=== PATIENT | female | born 1975 | race Caucasian/White ===

== ENCOUNTER 2020-10-11 08:20 | Day surgery (SDC) | payer OTHER, SELFPAY ==
[2020-09-06 21:22] VITALS: BMI 45.5
--- NOTE | 2020-10-10 08:43 | HO.ANESPROP2 ---
Documented by User: Fani Williamsonney 10/10/20 08:44 HPI - Anesthesia Eval Consult details Narrative: 45yo F for Upper Endoscopy and Colonoscopy *Mult med allergies* PMFSH Past Medical History Medical History Anxiety Asthma Back pain Borderline personality disorder Claustrophobia Depression Diabetic neuropathy DJD (degenerative joint disease) Fatty liver Fibromyalgia GERD (gastroesophageal reflux disease) Hypothyroid PTSD (post-traumatic stress disorder) Type II diabetes mellitus Surgical History Surgical History History of placement of ear tubes History of tonsillectomy Social History Social History Smoking Status: Former smoker Smoked in Last 30 Days: No Smoking Quit Date: 2011 Second Hand Smoke Exposure: No Use of substances other than those prescribed or required for medical reasons: Yes Substance Use Frequency: Daily Advance Directives: No Advance Directives Information Provided: No Advance Directives on File: No Recently lost weight without trying: No Meds Allergies Allergy/AdvReac Type Severity Reaction Status Date / Time eagle Allergy Swelling Verified 09/06/20 21:14 codeine Allergy Rash Verified 09/06/20 21:16 cyclobenzaprine Allergy Agitated Verified 09/06/20 21:16 [From Flexeril] divalproex sodium Allergy Swelling Verified 09/06/20 21:12 [From Depakote] droperidol Allergy Involuntary Verified 09/06/20 21:14 Spasms duloxetine [From Cymbalta] Allergy Agitated Verified 09/06/20 21:14 fluoxetine [From Prozac] Allergy Agitated Verified 09/06/20 21:14 lactose Allergy Gastrointestinal Verified 09/06/20 21:12 Upset methocarbamol Allergy Hallucinati Verified 09/06/20 21:12 ons Penicillins Allergy Hives Verified 09/06/20 21:12 pregabalin [From Lyrica] Allergy Agitated Verified 09/06/20 21:14 quetiapine [From Seroquel] Allergy Hallucinati Verified 09/06/20 21:12 ons sumatriptan [From Imitrex] Allergy Muscle Pain Verified 09/06/20 21:16 tizanidine Allergy Eye Verified 09/06/20 21:12 Swelling metformin AdvReac Diarrhea Verified 09/06/20 21:12 Milk Containing Products AdvReac Gastrointestinal Verified 09/06/20 21:12 Upset tetracycline AdvReac Agitated Verified 09/06/20 21:16 Home Medications Medication Instructions Recorded Confirmed Type cholecalciferol (vitamin D3) 125 mcg PO DAILY 09/06/20 09/06/20 History [Vitamin D3] levothyroxine [Tirosint] 88 mcg PO DAILY 09/06/20 09/06/20 History Exam Exam Date and Time: October 10, 2020 0843 Height,Weight and Vital Signs: Height 5 ft 2 in Weight 112.945 kg Assessment and Plan Assessment Anesthesia Assessment: Chart Reviewed Documented by User: Anton Bond MD 10/11/20 09:42 [facility] Past Medical History Medical History Anxiety Asthma Back pain Borderline personality disorder Claustrophobia Depression Diabetic neuropathy DJD (degenerative joint disease) Fatty liver Fibromyalgia GERD (gastroesophageal reflux disease) Hypothyroid PTSD (post-traumatic stress disorder) Type II diabetes mellitus Surgical History Surgical History History of placement of ear tubes History of tonsillectomy Social History Social History Smoking Status: Former smoker Smoked in Last 30 Days: No Smoking Quit Date: 2011 Second Hand Smoke Exposure: No Use of substances other than those prescribed or required for medical reasons: Yes Substance Use Frequency: Daily Advance Directives: No Advance Directives Information Provided: No Advance Directives on File: No Recently lost weight without trying: No Meds Allergies Allergy/AdvReac Type Severity Reaction Status Date / Time eagle Allergy Swelling Verified 09/06/20 21:14 codeine Allergy Rash Verified 09/06/20 21:16 cyclobenzaprine Allergy Agitated Verified 09/06/20 21:16 [From Flexeril] divalproex sodium Allergy Swelling Verified 09/06/20 21:12 [From Depakote] droperidol Allergy Involuntary Verified 09/06/20 21:14 Spasms duloxetine [From Cymbalta] Allergy Agitated Verified 09/06/20 21:14 fluoxetine [From Prozac] Allergy Agitated Verified 09/06/20 21:14 lactose Allergy Gastrointestinal Verified 09/06/20 21:12 Upset methocarbamol Allergy Hallucinati Verified 09/06/20 21:12 ons Penicillins Allergy Hives Verified 09/06/20 21:12 pregabalin [From Lyrica] Allergy Agitated Verified 09/06/20 21:14 quetiapine [From Seroquel] Allergy Hallucinati Verified 09/06/20 21:12 ons sumatriptan [From Imitrex] Allergy Muscle Pain Verified 09/06/20 21:16 tizanidine Allergy Eye Verified 09/06/20 21:12 Swelling metformin AdvReac Diarrhea Verified 09/06/20 21:12 Milk Containing Products AdvReac Gastrointestinal Verified 09/06/20 21:12 Upset tetracycline AdvReac Agitated Verified 09/06/20 21:16 Home Medications Medication Instructions Recorded Confirmed Type cholecalciferol (vitamin D3) 125 mcg PO DAILY 09/06/20 09/06/20 History [Vitamin D3] levothyroxine [Tirosint] 88 mcg PO DAILY 09/06/20 09/06/20 History Exam Airway Mallampati Class: I TM Dist: >3cm Neck ROM: Full Loose/Missing/Broken Teeth: Yes Heart: RRR Lungs: NL Other: AO Assessment and Plan Assessment Anesthesia Assessment: Anesthesia Plan Discussed and Chart Reviewed Final Anesthetic Review NPO: Yes ASA Class: III Final Preanesthetic Review: No Changes in Pt Med Stat, Meds/Allgs Chart Reviewed, Consent Obtained/Reviewed and Anes Risks/Benef Reviewed Patient Risk: High Procedure Risk: Low Anesthetic Plan Anesthetic Plan: MAC: Disposition: Standard PACU
[2020-10-11 09:36] VITALS: BP 154/72; PULSE 84; RESP 18; TEMP 36.3; O2SAT 97
[2020-10-11 09:43] LABS: UPreg QC Valid YES; Urine Pregnancy NEGATIVE (NEGATIVE)
--- NOTE | 2020-10-11 09:51 | MHC.SHP ---
Pre-Procedural Eval Section B Chief Complaint: abdominal pain Details of Present Illness: See H&P no changes Relevant Family History (Specify if Yes): No Relevant Social History: None Present Medications: see Short Stay Collaborative assessment Medical History: No relevant PMH (see H&P no changes) History of Previous Operations: No relevant previous surgery Allergies: Allergies Allergy/AdvReac Type Severity Reaction Status Date / Time eagle Allergy Swelling Verified 09/06/20 21:14 codeine Allergy Rash Verified 09/06/20 21:16 cyclobenzaprine Allergy Agitated Verified 09/06/20 21:16 [From Flexeril] divalproex sodium Allergy Swelling Verified 09/06/20 21:12 [From Depakote] droperidol Allergy Involuntary Verified 09/06/20 21:14 Spasms duloxetine [From Cymbalta] Allergy Agitated Verified 09/06/20 21:14 fluoxetine [From Prozac] Allergy Agitated Verified 09/06/20 21:14 lactose Allergy Gastrointestinal Verified 09/06/20 21:12 Upset methocarbamol Allergy Hallucinati Verified 09/06/20 21:12 ons Penicillins Allergy Hives Verified 09/06/20 21:12 pregabalin [From Lyrica] Allergy Agitated Verified 09/06/20 21:14 quetiapine [From Seroquel] Allergy Hallucinati Verified 09/06/20 21:12 ons sumatriptan [From Imitrex] Allergy Muscle Pain Verified 09/06/20 21:16 tizanidine Allergy Eye Verified 09/06/20 21:12 Swelling metformin AdvReac Diarrhea Verified 09/06/20 21:12 Milk Containing Products AdvReac Gastrointestinal Verified 09/06/20 21:12 Upset tetracycline AdvReac Agitated Verified 09/06/20 21:16 Review of Systems Sugical H&P ROS: Negative: Constitution, Cardiovascular, Respiratory, Neurological, Psychiatric, Hem-Onc, Allergic/Immunologic, Gastrointestinal, Genitourinary, Integumentary, Endocrine and Eyes/Ears/Nose/Throat and Yes, Specify: Musculoskeletal (c/o headache after iv insertion) Exam Surgical H&P Exam: Normal: HEENT, Normal: Heart, Normal: Lungs, Normal: Extremities, Normal: Abdomen, Normal: Skin and Normal: Neurological Plan Diagnosis/Plan: Unchanged I have reviewed the history and physical and performed a pertinent physical examination on my patient. No changes have occurred unless specified.
[2020-10-11] MEDS: Lactated Ringers 1,000 ML 100 ML IVCONT (10:00)
[2020-10-11 10:29] LABS: Glucose, Whole Blood 192 mg/dL (60-115)
[2020-10-11 10:37] VITALS: BP 117/68; PULSE 79; RESP 18; TEMP 36.4; O2SAT 100
--- NOTE | 2020-10-11 10:37 | PM.OP ---
Brief Operative Note Date of Service: 10/11/20 Pre-op diagnosis: abdominal pain, change in bowels Post-op diagnosis: same (normal egd, colon polyps) Procedure: egd,colon Surgeon: Emigdio Tracy Anesthesia: MAC Estimated blood loss (mL): 5 Pathology: other (bxs doudenum, antrum, egj, ti, sigmoid, cecal polyps) Condition: stable Disposition: PACU
[2020-10-11 10:52] VITALS: BP 126/60; PULSE 73; RESP 13; TEMP 36.4; O2SAT 100
[2020-10-11 11:07] VITALS: BP 142/88; PULSE 70; RESP 16; O2SAT 100
--- NOTE | 2020-10-11 11:13 | OP_ITS ---
SURGEON: Emigdio Tracy MD INDICATIONS: 1. Abdominal pain. 2. Change in bowel function. PREOPERATIVE DIAGNOSIS: POSTOPERATIVE DIAGNOSIS: PROCEDURE PERFORMED: 1. Upper endoscopy with biopsy. 2. Colonoscopy to the terminal ileum with biopsy. ESTIMATED BLOOD LOSS: COMPLICATIONS: ANESTHESIA: ASSISTANTS: SPECIMENS: MEDICATIONS: Monitored anesthesia care. DESCRIPTION OF PROCEDURE: History and physical performed. The risks and benefits of the procedure were explained to the patient. Informed consent was obtained. The patient was placed in the left lateral decubitus position. The Olympus video gastroscope was introduced into the esophagus, stomach, and duodenum. Examination was performed. The scope was removed. She was repositioned for colonoscopy. A digital rectal exam was performed and was found to be normal. The Olympus pediatric video colonoscope was introduced into the rectum and advanced to the cecum without difficulty. The cecum was identified by transillumination, palpation, and identification of ileocecal valve. Examination was performed. The scope was removed. She tolerated both procedures well and was taken to recovery in stable condition. FINDINGS: UPPER ENDOSCOPY: Esophagus: The esophagus was normal. Biopsies were obtained from the EG junction. There was no esophagitis. Stomach: Stomach was normal. Biopsies were obtained from the antrum. Duodenum: The bulb and second portion were normal. Biopsies were obtained from the second portion. COLONOSCOPY: The terminal ileum was normal. This was biopsied. In the cecum were two 2 mm polyps which were removed with biopsy forceps. No other polyps were identified. There was some liquid stool coating the mucosa in the right colon and cecum limiting sensitivity examination for detection of small polyps. This was washed and suctioned as best possible. No other polyps were identified. Random biopsies were obtained from the sigmoid colon. Retroflexed examination was normal. IMPRESSION: 1. Normal upper endoscopy. 2. Colon polyps. RECOMMENDATION: Follow up the biopsy results. MD CURT Dunn/EMILIA / [id number]
--- NOTE | 2020-10-11 11:50 | HO.POSTANES ---
Post Anesthesia Evaluation Post Anesthesia Evaluation Vital Signs: Vital Signs Temp Pulse Resp BP Pulse Ox 10/11/20 11:07 97.6 F 70 16 142/88 H 100 10/11/20 10:52 97.6 F 73 13 126/60 100 10/11/20 10:37 97.6 F 79 18 117/68 100 10/11/20 09:36 97.3 F 84 18 154/72 H 97 Anesthesia: General (tiva) Mental Status: Awake Pain Control: Satisfactory Nausea/Vomiting: None Hydration: Adequate Anesthesia-Related Issues: No Anes. Related Issues
== END 2020-10-11 11:45 | disposition home or self-care (01) ==
LOC: HO.SSS 08:21
PROVIDERS: Nurse Practitioner; Visit Provider Internal Medicine Gastroenterology
PROC: (CPT 45380; principal; 2020-10-11 09:50)
DX: R19.4 Change in bowel habit (principal); D12.0 Benign neoplasm of cecum; R10.84 Generalized abdominal pain; K22.70 Barrett's esophagus without dysplasia; K21.9 Gastro-esophageal reflux disease without esophagitis; K76.0 Fatty (change of) liver, not elsewhere classified; J45.909 Unspecified asthma, uncomplicated; E11.40 Type 2 diabetes mellitus with diabetic neuropathy, unspecified; F32.9 Major depressive disorder, single episode, unspecified; F43.10 Post-traumatic stress disorder, unspecified; Z79.4 Long term (current) use of insulin; Z79.899 Other long term (current) drug therapy; Z87.891 Personal history of nicotine dependence; Z88.0 Allergy status to penicillin; Z88.8 Allergy status to other drugs, medicaments and biological substances
CPT/HCPCS: 45380; 43239; 81025; 82947; 88305; 88342

== ENCOUNTER 2020-10-20 15:36 | Outpatient (REF) | payer OTHER, SELFPAY ==
[2020-10-20 16:29] LABS: Blood Urea Nitrogen 9 mg/dL (9-16); Estimated Glomerular Filt Rate > 60
== END 2020-10-20 15:37 | disposition home or self-care (01) ==
LOC: HO.LAB 15:36
PROVIDERS: Visit Provider Internal Medicine Gastroenterology
DX: R10.9 Unspecified abdominal pain (principal)
CPT/HCPCS: 36415; 82565; 84520

== ENCOUNTER 2020-10-24 13:22 | Outpatient (REF) | payer OTHER, SELFPAY ==
--- NOTE | 2020-10-24 13:55 | CT_ITS ---
EXAMINATION: CT ABDOMEN AND PELVIS WITH CONTRAST CLINICAL INFORMATION: Abdominal pain COMPARISON: None TECHNIQUE: Multidetector volumetric images were obtained from the superior aspect of the liver through the pubic symphysis following administration 85 mL of Omnipaque 350 intravenous contrast. Sagittal and coronal reformatted images were obtained on the technologist's workstation. Oral contrast: Yes This CT examination was performed using dose optimization techniques as appropriate, variously including the following: *Automated exposure control *Adjustment of mA and/or kV according to patient size (this includes techniques or standardized protocols for targeted exams where dose is matched to indication/reason for exam; i.e. extremities or head) *Use of iterative reconstruction technique DLP: 819 mGy-cm FINDINGS: LUNG BASES: The visualized lung bases are unremarkable. LIVER, GALLBLADDER, AND BILIARY TREE: The liver is low in attenuation suggestive of fatty infiltration. The liver is slightly enlarged, right lobe measuring 20 cm in length. No focal liver lesion or biliary duct dilatation. The gallbladder is unremarkable with no evidence of radiopaque gallstones, gallbladder wall thickening, or obvious pericholecystic inflammatory changes. PANCREAS: Unremarkable. SPLEEN: Unremarkable. ADRENAL GLANDS: Unremarkable. KIDNEYS AND URETERS: The kidneys are normal in size, shape, and attenuation. No hydronephrosis, hydroureter, or calculi seen. No perinephric stranding. BLADDER: Unremarkable. GASTROINTESTINAL TRACT: The small and large bowel are unremarkable. The appendix is unremarkable. ABDOMINAL WALL: There is a small umbilical hernia containing fat.. LYMPH NODES: Normal. VASCULAR: Unremarkable. PELVIC VISCERA: Unremarkable. OSSEOUS STRUCTURES: There are degenerative changes of the spine. CT/CT abdomen pelvis w con IMPRESSION: Slightly enlarged fatty liver.
[2020-10-24] MEDS: iohexoL 350 MG/ML 100 ML INFUS..BTL IV (15:56)
== END 2020-10-24 13:23 | disposition home or self-care (01) ==
LOC: HO.CT 13:22
PROVIDERS: Visit Provider Internal Medicine Gastroenterology
DX: R10.84 Generalized abdominal pain (principal)
CPT/HCPCS: 74177; Q9967